=== PATIENT | female | born 1965 | race Two or more races ===

== ENCOUNTER 2018-04-26 16:28 | Inpatient (IN) | payer OTHER ==
[2018-04-26 17:06] VITALS: BMI 18.8
--- NOTE | 2018-04-26 18:20 | HP ---
CIWA Score Nausea/Vomitin-Mild Nausea/No Vomiting Muscle Tremors: 2 Anxiety: 2 Agitation: 2 Paroxysmal Sweats: 1-Minimal Palms Moist Orientation: 1-Uncertain about Date Tacttile Disturbances: 1-Very Mild Itch/Numbness Auditory Disturbances: 1-Very Mild Visual Disturbances: 1-Very Mild Sensitivity Headache: 1-Very Mild CIWA-Ar Total Score: 13 - Admission Criteria OASAS Guidelines: Admission for Medically Managed Detox: Requires at least one of the followin. CIWA greater than 12 2. Seizures within the past 24 hours 3. Delirium tremens within the past 24 hours 4. Hallucinations within the past 24 hours 5. Acute intervention needed for co occurring medical disorder 6. Acute intervention needed for co occurring psychiatric disorder 7. Severe withdrawal that cannot be handled at a lower level of care (continued vomiting, continued diarrhea, abnormal vital signs) requiring intravenous medication and/or fluids 8. Admission ROS [facility] Chief Complaint: WITHDRAWAL SYMPTOMS Allergies/Adverse Reactions: Allergies Allergy/AdvReac Type Severity Reaction Status Date / Time No Known Allergies Allergy Unverified 07/09/11 10:32 History of Present Illness: 53 Y.O. WOMAN WITH A HISTORY OF ALCOHOL, MARIJUANA AND COCAINE DEPENDENCE IS HERE SEEKING DETOX SERVICES. SHE REPORTS SHE LAST COMPLETED DETOX 5 YEARS AGO. 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 PT. REPORTS THE TAKES THE MEDICATION FOR BACK AND B/L KNEE PAIN AND DENIES ANY HISTORY OF ABUSE. UA IS NEGATIVE FOR ALL OPIATES. PT. INFORMED THAT SHE WILL NOT BE RECEIVING OPIATES DURING HER ADMISSION HERE AT [facility] AND PAIN WOULD BE MANAGED WITH NON-OPIATES; PT. VERBALIZED UNDERSTANDING. PT. WAS EVALUATED AT [facility] ON 04/25/18 AND WAS DIAGNOSED WITH A UTI; DISCHARGE INSTRUCTIONS STATE THE PT. IS TO COMPLETE A 7 DAY COURSE OF 750MG LEVAQUIN WHICH SHE WILL START DURING HAD ADMISSION HERE. Others' Prescriptions Patient Name: Angela Cuellar Date: 1965 Address: [address] [place] [address] Sex: Female Rx Written Rx Dispensed Drug Quantity Days Supply Prescriber Name 04/15/2018 04/15/2018 oxycodone hcl 30 mg tablet 120 30 Jackelyn Gil MD 03/21/2018 03/21/2018 oxycodone hcl 30 mg tablet 120 30 Louise Somsri MD 02/16/2018 02/16/2018 oxycodone hcl 30 mg tablet 120 30 RatanaprasatpornJackelyn MD 01/17/2018 01/17/2018 oxycodone hcl 30 mg tablet 120 30 RatanaprasatpornJackelyn MD 12/20/2017 12/21/2017 oxycodone hcl 30 mg tablet 120 30 RatanaprasatpornJackelyn MD 11/17/2017 11/17/2017 oxycodone hcl 30 mg tablet 120 30 RatanaprasatpornJackelyn MD 11/04/2017 11/05/2017 oxycodone-acetaminophen 5-325 mg tab 20 5 Jean Mendez () 10/18/2017 10/18/2017 oxycodone hcl 30 mg tablet 120 30 RatanaprasatpornJackelyn MD 09/17/2017 09/17/2017 oxycodone hcl 30 mg tablet 120 30 RatanaprasatpornJackelyn MD Patient Name: Angela Cuellar Date: 1965 Address: [address] [place] [address] Sex: Female Rx Written Rx Dispensed Drug Quantity Days Supply Prescriber Name 08/20/2017 08/20/2017 oxycodone hcl 30 mg tablet 120 30 RatanaprasatpornJackelyn MD 07/20/2017 07/20/2017 oxycodone hcl 30 mg tablet 120 30 RatanaprasatpornJackelyn MD 06/22/2017 06/22/2017 oxycodone hcl 30 mg tablet 120 30 RatanaprasatpornJackelyn MD 05/22/2017 05/22/2017 oxycodone hcl 30 mg tablet 120 30 RatanaprasatpornJackelyn MD * - Drugs marked with an asterisk are compound drugs. If the compound drug is made up of more than one controlled substance, then each controlled substance will be a separate row in the Exam Limitations: No Limitations - Ebola screening Have you traveled outside of the country in the last 21 days: Yes (Y) Have you had contact with anyone from an Ebola affected area: Yes Have you been sick,other than usual withdrawal symptoms: No Do you have a fever: Yes - Review of Systems Constitutional: Diaphoresis, Loss of Appetite, Night Sweats, Unexplained wgt Loss EENT: reports: Tearing Respiratory: reports: Cough, Wheezing Cardiac: reports: Chest Pain GI: reports: Diarrhea, Nausea : reports: Dysuria Musculoskeletal: reports: Back Pain, Joint Pain Integumentary: reports: Bruising Neuro: reports: Headache, Tremors Endocrine: reports: No Symptoms Reported Hematology: reports: Anemia Psychiatric: reports: Orientated x3, Depressed, other (Bipolar) Other Systems: Reviewed and Negative Patient History - Patient Medical History Hx Anemia: Yes (SKY ) Hx Asthma: Yes Hx Chronic Obstructive Pulmonary Disease (COPD): No Hx Cancer: No Hx Cardiac Disorders: No Hx Congestive Heart Failure: No Hx Hypertension: Yes (NOT ON MEDS ) Hx Hypercholesterolemia: No Hx Pacemaker: No HX Cerebrovascular Accident: Yes (10 YEARS AGO-DRUG INDUCED) Hx Seizures: Yes (Pt has a hx of etoh related seizures. Last seizure was 5 years ago) Hx Dementia: No Hx Diabetes: No Hx Gastrointestinal Disorders: No Hx Liver Disease: No Hx Genitourinary Disorders: No Hx Sexually Transmitted Disorders: No Hx Renal Disease (ESRD): No Hx Thyroid Disease: No Hx Human Immunodeficiency Virus (HIV): No Hx Hepatitis C: No Hx Depression: Yes (Manic depression) Hx Suicide Attempt: No Hx Bipolar Disorder: Yes Hx Schizophrenia: No - Patient Surgical History Past Surgical History: Yes Hx Neurologic Surgery: No Hx Cataract Extraction: No Hx Cardiac Surgery: No Hx Lung Surgery: No Hx Breast Surgery: No Hx Breast Biopsy: No Hx Appendectomy: Yes (at age 14 yrs) Hx Section: Yes (x3 1977 1982 1984) Hx Orthopedic Surgery: Yes (b/l knee replacement sx 09/2017 and 10/2017) Hx Hysterectomy: No Other Surgical History: Tonsillectomy at age 4 yrs Anesthesia Reaction: No - PPD History Previous Implant?: Yes Documented Results: Negative w/o proof Implanted On Prior R Admission?: Yes Date: 07/10/11 PPD to be Administered?: Yes - Reproductive History Patient is a Female of Child Bearing Age (11 -55 yrs old): Yes Last Menstrual Period: 05/11/11 (Reports last period was 10 yrs ago) Patient : No - Smoking Cessation Smoking history: Current every day smoker Have you smoked in the past 12 months: Yes Aproximately how many cigarettes per day: 2 Hx Chewing Tobacco Use: Yes Initiated information on smoking cessation: Yes 'Breaking Loose' booklet given: 04/26/18 - Substance & Tx. History Hx Alcohol Use: Yes Hx Substance Use: Yes Substance Use Type: Alcohol Hx Substance Use Treatment: Yes (Detox: 2012) - Substances Abused Alcohol Route: Oral Frequency: Daily Amount used: 1 pint of liquor Age of first use: 10 Date of Last Use: 04/25/18 Cocaine Route: Inhalation Frequency: 1-2 times per week Amount used: 1 gram Age of first use: 22 Date of Last Use: 04/21/18 Marijuana/Hashish Route: Smoking Frequency: Daily Amount used: 1 oz Age of first use: 10 Date of Last Use: 04/25/18 Family Disease History - Family Disease History Family Disease History: Diabetes: Mother (ETOH DEPENDENCE ()), Heart Disease: Father, Other: Mother Admission Physical Exam S - Vital Signs Vital Signs: Vital Signs - 24 hr 04/26/18 17:04 Temperature 97.0 F L Pulse Rate 69 Respiratory 18 Rate Blood Pressure 115/77 - Physical General Appearance: Yes: Thin, Tremorous, Anxious HEENTM: Yes: Hearing grossly Normal, Normocephalic, Normal Voice Respiratory: Yes: Chest Non-Tender, Normal Breath Sounds, No Respiratory Distress, No Accessory Muscle Use Neck: Yes: No masses,lesions,Nodules, Trachea in good position Breast: Yes: Breast Exam Deferred Cardiology: Yes: Regular Rhythm, Regular Rate Abdominal: Yes: Normal Bowel Sounds, Non Tender Genitourinary: Yes: Dysuria Back: Yes: Normal Inspection Musculoskeletal: Yes: Back pain, Joint Stiffness Extremities: Yes: Normal Inspection, Non-Tender Neurological: Yes: Alert, Normal Mood/Affect, Normal Response Integumentary: Yes: Normal Color, Dry, Warm Lymphatic: Yes: Within Normal Limits - Diagnostic (1) Alcohol dependence with uncomplicated withdrawal Current Visit: Yes Status: Chronic (2) Nicotine dependence Current Visit: Yes Status: Chronic (3) Asthma Current Visit: Yes Status: Chronic (4) UTI (urinary tract infection) Current Visit: Yes Status: Acute (5) Back pain Current Visit: Yes Status: Chronic (6) Knee pain Current Visit: Yes Status: Chronic (7) Underweight Current Visit: Yes Status: Acute (8) Loss of appetite Current Visit: Yes Status: Acute (9) Cocaine dependence Current Visit: Yes Status: Chronic (10) Marijuana dependence Current Visit: Yes Status: Chronic (11) CVA (cerebral vascular accident) Current Visit: No Status: Acute (12) History of seizure Current Visit: No Status: Acute (13) SKY (iron deficiency anemia) Current Visit: Yes Status: Acute Cleared for Admission [facility] - Detox or Rehab [facility] Level of Care: Medically Managed Detox Regimen/Protocol: Librium [facility] Breath Alcohol Content Breath Alcohol Content: 0 Urine Drug Screen - Results Drug Screen Negative: No Urine Drug Screen Results: THC-Marijuana, AZEB-Cocaine
[2018-04-26] MEDS ORDERED: MAGNESIUM HYDROX 2400MG/30ML ORAL SUSPENSION 30 ML CUP PO PRN (19:02)
[2018-04-26] MEDS ORDERED: P-EPHED 60MG/TRIPROLIDI 2.5MG TABLET PO PRN (19:02)
[2018-04-26] MEDS ORDERED: LOPERAMIDE HCL 2 MG CAPSULE PO PRN (19:02)
[2018-04-26] MEDS ORDERED: MENTHOL/PHENOL 1 EACH UD MM PRN (19:02)
[2018-04-26] MEDS ORDERED: hydrOXYzine PAMOATE 50 MG CAPSULE (FP) PO PRN (19:02)
[2018-04-26] MEDS ORDERED: MAGNESIUM CITRATE 300 ML BOTTLE PO PRN (19:02)
[2018-04-26] MEDS ORDERED: MAG HYDROX/AL HYDROX/SIMETH 30 ML UNIT-DOSE CUP PO PRN (19:02)
[2018-04-26] MEDS: chlordiazePOXIDE HCL 25 MG CAPSULE PO SCH (22:32)
[2018-04-26] MEDS: MELATONIN 5 MG TABLETS PO PRN (22:33)
[2018-04-26] MEDS: THIAMINE HCL 100 MG TABLET (FP) PO SCH (22:33)
[2018-04-26] MEDS: ALBUTEROL SO4 8 GM HFA INHALER IH SCH ×2 (22:36→23:10)
[2018-04-27] MEDS: ALBUTEROL SO4 8 GM HFA INHALER IH SCH ×3 (04:10→11:14)
[2018-04-27] MEDS: chlordiazePOXIDE HCL 25 MG CAPSULE PO SCH ×4 (06:10→22:18)
[2018-04-27] MEDS ORDERED: ALBUTEROL SO4 0.083% IH SOL 2.5 MG/3 ML VIAL.NEB. NEB PRN (09:35)
--- NOTE | 2018-04-27 09:37 | PN ---
[facility] CIWA - CIWA Score Nausea/Vomitin-No Nausea/No Vomiting Muscle Tremors: 4-Moderate,w/Arms Extend Anxiety: 2 Agitation: 3 Paroxysmal Sweats: 1-Minimal Palms Moist Orientation: 1-Uncertain about Date Tacttile Disturbances: 0-None Auditory Disturbances: 0-None Visual Disturbances: 0-None Headache: 1-Very Mild CIWA-Ar Total Score: 12 S Progress Note (SOAP) Subjective: tremor sweat asthma "acting out" nebulizer prn anxiety restlessness patient is taking lavequin for uti from 04/25/18 at [facility] Objective: 04/27/18 13:44 Vital Signs Temperature 98.2 F 04/27/18 09:11 Pulse Rate 66 04/27/18 09:11 Respiratory Rate 18 04/27/18 09:11 Blood Pressure 127/67 04/27/18 09:11 O2 Sat by Pulse Oximetry (%) Laboratory Last Values WBC 6.5 K/mm3 (4.0-10.0) 04/27/18 08:00 RBC 4.56 M/mm3 (3.60-5.2) 04/27/18 08:00 Hgb 13.2 GM/dL (10.7-15.3) 04/27/18 08:00 Hct 41.6 % (32.4-45.2) 04/27/18 08:00 MCV 91.3 fl (80-96) 04/27/18 08:00 MCH 28.9 pg (25.7-33.7) 04/27/18 08:00 MCHC 31.7 g/dl (32.0-36.0) L 04/27/18 08:00 RDW 13.8 % (11.6-15.6) 04/27/18 08:00 Plt Count 195 K/MM3 (134-434) D 04/27/18 08:00 MPV 9.2 fl (7.5-11.1) 04/27/18 08:00 Sodium 145 mmol/L (136-145) 04/27/18 08:00 Potassium 4.1 mmol/L (3.5-5.1) 04/27/18 08:00 Chloride 112 mmol/L (98-107) H 04/27/18 08:00 Carbon Dioxide 28 mmol/L (21-32) 04/27/18 08:00 Anion Gap 5 MMOL/L (8-16) L 04/27/18 08:00 BUN 9 mg/dL (7-18) 04/27/18 08:00 Creatinine 0.8 mg/dL (0.55-1.3) 04/27/18 08:00 Creat Clearance w eGFR > 60 (>60) 04/27/18 08:00 Random Glucose 86 mg/dL (74-106) 04/27/18 08:00 Calcium 8.7 mg/dL (8.5-10.1) 04/27/18 08:00 Total Bilirubin 0.3 mg/dL (0.2-1) 04/27/18 08:00 AST 28 U/L (15-37) 04/27/18 08:00 ALT 37 U/L (13-61) 04/27/18 08:00 Alkaline Phosphatase 105 U/L (45-117) 04/27/18 08:00 Total Protein 6.7 g/dl (6.4-8.2) 04/27/18 08:00 Albumin 3.5 g/dl (3.4-5.0) 04/27/18 08:00 RPR Titer Nonreactive (NONREACTIVE) 04/27/18 08:00 lab noted Assessment: 04/27/18 13:44 withdrawal sx uti Plan: continue detox
[2018-04-27] MEDS ORDERED: levoFLOXacin 750 MG TABLET PO SCH (10:00)
[2018-04-27 10:02] LABS: HEMATOCRIT 41.6 % (32.4-45.2); HEMOGLOBIN 13.2 GM/dL (10.7-15.3); MCH 28.9 pg (25.7-33.7); MCHC 31.7 g/dl (32.0-36.0); MEAN CELL VOLUME 91.3 fl (80-96); MEAN PLT VOLUME 9.2 fl (7.5-11.1); PLATELET COUNT 195 K/MM3 (134-434); RBC 4.56 M/mm3 (3.60-5.2); RDW 13.8 % (11.6-15.6); WHITE BLOOD COUNT 6.5 K/mm3 (4.0-10.0)
[2018-04-27] MEDS: PRENATAL VITAMINS W/ FOLIC ACID TABLET (FP) PO SCH (11:12)
[2018-04-27 11:19] LABS: ALBUMIN 3.5 g/dl (3.4-5.0); ALK PHOS 105 U/L (45-117); ANION GAP 5 MMOL/L (8-16); BILIRUBIN,TOTAL 0.3 mg/dL (0.2-1); BLOOD UREA NITROGEN 9 mg/dL (7-18); CALCIUM 8.7 mg/dL (8.5-10.1); CHLORIDE 112 mmol/L (98-107); CO2 28 mmol/L (21-32); CREATININE 0.8 mg/dL (0.55-1.3); GLUCOSE,RANDOM 86 mg/dL (74-106); POTASSIUM 4.1 mmol/L (3.5-5.1); SGOT/AST 28 U/L (15-37); SGPT/ALT 37 U/L (13-61); SODIUM 145 mmol/L (136-145); TOT PROT 6.7 g/dl (6.4-8.2)
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
--- NOTE | 2018-04-27 18:57 | EKG ---
Test Reason : Blood Pressure : / mmHG Vent. Rate : 080 BPM Atrial Rate : 080 BPM P-R Int : 170 ms QRS Dur : 084 ms QT Int : 384 ms P-R-T Axes : 080 083 068 degrees QTc Int : 442 ms NORMAL SINUS RHYTHM NORMAL ECG NO PREVIOUS ECGS AVAILABLE Confirmed by YADIEL GAYLE, BRYANNA ([id number]) on 04/27/2018 6:57:22 PM Referred By: Confirmed By:BRYANNA COTTO MD
[2018-04-27] MEDS: QUEtiapine FUMARATE 50 MG TABLET PO SCH (22:18)
[2018-04-27] MEDS: THIAMINE HCL 100 MG TABLET (FP) PO SCH (22:18)
[2018-04-28] MEDS: chlordiazePOXIDE HCL 25 MG CAPSULE PO SCH ×3 (06:03→17:46)
[2018-04-28] MEDS: ALBUTEROL SO4 8 GM HFA INHALER IH PRN (10:37)
[2018-04-28] MEDS: PRENATAL VITAMINS W/ FOLIC ACID TABLET (FP) PO SCH (10:37)
--- NOTE | 2018-04-28 16:14 | PN ---
S CIWA - CIWA Score Nausea/Vomitin-No Nausea/No Vomiting Muscle Tremors: 3 Anxiety: 2 Agitation: 2 Paroxysmal Sweats: 1-Minimal Palms Moist Orientation: 0-Oriented Tacttile Disturbances: 0-None Auditory Disturbances: 0-None Visual Disturbances: 0-None Headache: 2-Mild CIWA-Ar Total Score: 10 S Progress Note (SOAP) Subjective: tremor sweat gi distress restlessness Objective: 04/28/18 16:13 Vital Signs Temperature 96.1 F L 04/28/18 13:28 Pulse Rate 87 04/28/18 13:28 Respiratory Rate 18 04/28/18 13:28 Blood Pressure 102/62 04/28/18 13:28 O2 Sat by Pulse Oximetry (%) Laboratory Last Values WBC 6.5 K/mm3 (4.0-10.0) 04/27/18 08:00 RBC 4.56 M/mm3 (3.60-5.2) 04/27/18 08:00 Hgb 13.2 GM/dL (10.7-15.3) 04/27/18 08:00 Hct 41.6 % (32.4-45.2) 04/27/18 08:00 MCV 91.3 fl (80-96) 04/27/18 08:00 MCH 28.9 pg (25.7-33.7) 04/27/18 08:00 MCHC 31.7 g/dl (32.0-36.0) L 04/27/18 08:00 RDW 13.8 % (11.6-15.6) 04/27/18 08:00 Plt Count 195 K/MM3 (134-434) D 04/27/18 08:00 MPV 9.2 fl (7.5-11.1) 04/27/18 08:00 Sodium 145 mmol/L (136-145) 04/27/18 08:00 Potassium 4.1 mmol/L (3.5-5.1) 04/27/18 08:00 Chloride 112 mmol/L (98-107) H 04/27/18 08:00 Carbon Dioxide 28 mmol/L (21-32) 04/27/18 08:00 Anion Gap 5 MMOL/L (8-16) L 04/27/18 08:00 BUN 9 mg/dL (7-18) 04/27/18 08:00 Creatinine 0.8 mg/dL (0.55-1.3) 04/27/18 08:00 Creat Clearance w eGFR > 60 (>60) 04/27/18 08:00 Random Glucose 86 mg/dL (74-106) 04/27/18 08:00 Calcium 8.7 mg/dL (8.5-10.1) 04/27/18 08:00 Total Bilirubin 0.3 mg/dL (0.2-1) 04/27/18 08:00 AST 28 U/L (15-37) 04/27/18 08:00 ALT 37 U/L (13-61) 04/27/18 08:00 Alkaline Phosphatase 105 U/L (45-117) 04/27/18 08:00 Total Protein 6.7 g/dl (6.4-8.2) 04/27/18 08:00 Albumin 3.5 g/dl (3.4-5.0) 04/27/18 08:00 RPR Titer Nonreactive (NONREACTIVE) 04/27/18 08:00 lab noted 04/28/18 16:13 ua pending Assessment: 04/28/18 16:13 withdrawal sx Plan: continue detox
[2018-04-28] MEDS: THIAMINE HCL 100 MG TABLET (FP) PO SCH (22:41)
[2018-04-28] MEDS: chlordiazePOXIDE 5 MG CAPSULE PO SCH (22:42)
[2018-04-28] MEDS: QUEtiapine FUMARATE 50 MG TABLET PO SCH (22:42)
[2018-04-29] MEDS: chlordiazePOXIDE 5 MG CAPSULE PO SCH ×4 (07:49→16:40)
[2018-04-29 10:22] LABS: URINE APPEARANCE CLEAR; URINE BILIRUBIN NEGATIVE (<2.0 mg/dL); URINE COLOR LTYELLOW; URINE GLUCOSE (UA) NEGATIVE (NEGATIVE); URINE KETONE NEGATIVE (NEGATIVE); URINE LEUK ESTERASE NEGATIVE (NEGATIVE); URINE NITRITE NEGATIVE (NEGATIVE); URINE PROTEIN NEGATIVE (NEGATIVE); URINE UROBILINOGEN NEGATIVE mg/dL (0.2-1.0)
[2018-04-29] MEDS: PRENATAL VITAMINS W/ FOLIC ACID TABLET (FP) PO SCH (11:05)
--- NOTE | 2018-04-29 17:41 | PN ---
[facility] Progress Note Note: PATIENT CONTINUES WITH DETOX REGIMEN. C/O "LOOSE COUGH", SWEATING AND NAUSEA. Vital Signs Temperature 98.3 F 04/29/18 09:46 Pulse Rate 69 04/29/18 09:46 Respiratory Rate 16 04/29/18 09:46 Blood Pressure 102/64 04/29/18 09:46 O2 Sat by Pulse Oximetry (%) Laboratory Tests 04/27/18 04/27/18 04/27/18 08:00 08:00 08:00 WBC 6.5 RBC 4.56 Hgb 13.2 Hct 41.6 MCV 91.3 MCH 28.9 MCHC 31.7 L RDW 13.8 Plt Count 195 D MPV 9.2 Sodium 145 Potassium 4.1 Chloride 112 H Carbon Dioxide 28 Anion Gap 5 L BUN 9 Creatinine 0.8 Creat Clearance w eGFR > 60 Random Glucose 86 Calcium 8.7 Total Bilirubin 0.3 AST 28 ALT 37 Alkaline Phosphatase 105 Total Protein 6.7 Albumin 3.5 Urine Color Urine Appearance Urine pH Ur Specific [place] Urine Protein Urine Glucose (UA) Urine Ketones Urine Blood Urine Nitrite Urine Bilirubin Urine Urobilinogen Ur Leukocyte Esterase RPR Titer Nonreactive 04/28/18 08:00 WBC RBC Hgb Hct MCV MCH MCHC RDW Plt Count MPV Sodium Potassium Chloride Carbon Dioxide Anion Gap BUN Creatinine Creat Clearance w eGFR Random Glucose Calcium Total Bilirubin AST ALT Alkaline Phosphatase Total Protein Albumin Urine Color Ltyellow Urine Appearance Clear Urine pH 7.0 Ur Specific [place] 1.013 Urine Protein Negative Urine Glucose (UA) Negative Urine Ketones Negative Urine Blood Negative Urine Nitrite Negative Urine Bilirubin Negative Urine Urobilinogen Negative Ur Leukocyte Esterase Negative RPR Titer PE: ALERT AND ORIENTED X 3 SKIN WARM AND MOIST CAR S1 S2 RESP CTA BL @ BASES, +RHONCHI CLEARS WITH COUGHING EXT FULL ROM, AMB AD RODRIGUEZ A/P WITHDRAWAL SX COUGH CONTINUE DETOX ENCOURAGE FLUIDS ROBITUSSIN FOR COUGH PATIENT ON LEVAQUIN FOR UTI WHICH CAN COVER URI THERFORE WILL NOT CHANGE OR ADD TO REGIMEN CONTINUE TO MONITOR
[2018-04-29] MEDS: chlordiazePOXIDE HCL 10 MG CAPSULE PO SCH (22:12)
[2018-04-29] MEDS: QUEtiapine FUMARATE 50 MG TABLET PO SCH (22:12)
[2018-04-29] MEDS: THIAMINE HCL 100 MG TABLET (FP) PO SCH (22:12)
[2018-04-29] MEDS: guaiFENesin/D-METHORPHAN HB 10 ML UNIT-DOSE CUPS PO PRN (22:13)
[2018-04-29] MEDS: ALBUTEROL SO4 8 GM HFA INHALER IH PRN (22:44)
[2018-04-30] MEDS: chlordiazePOXIDE HCL 10 MG CAPSULE PO SCH ×3 (06:00→17:25)
[2018-04-30] MEDS: ALBUTEROL SO4 8 GM HFA INHALER IH PRN (11:07)
[2018-04-30] MEDS: PRENATAL VITAMINS W/ FOLIC ACID TABLET (FP) PO SCH (11:07)
--- NOTE | 2018-04-30 11:39 | DS ---
[facility] Detox Discharge Summary Admission Date: 04/26/18 Discharge Date: 04/30/18 - History Additional Comments: DETOX COMPLETED. PT WAS SEEN BY HEALTHCARE RECEPTIONIST, RACHELLE CASAS AND REFERRED TODAY TO REHAB ON . Pertinent Past History: PLEASE SEE DX BELOW - Physical Exam Results Vital Signs: Vital Signs Temperature 97.1 F L 04/30/18 06:31 Pulse Rate 58 L 04/30/18 06:31 Respiratory Rate 18 04/30/18 06:31 Blood Pressure 102/60 04/30/18 06:31 O2 Sat by Pulse Oximetry (%) Pertinent Admission Physical Exam Findings: WITHDRAWAL SX Laboratory Tests 04/27/18 04/27/18 04/27/18 08:00 08:00 08:00 WBC 6.5 RBC 4.56 Hgb 13.2 Hct 41.6 MCV 91.3 MCH 28.9 MCHC 31.7 L RDW 13.8 Plt Count 195 D MPV 9.2 Sodium 145 Potassium 4.1 Chloride 112 H Carbon Dioxide 28 Anion Gap 5 L BUN 9 Creatinine 0.8 Creat Clearance w eGFR > 60 Random Glucose 86 Calcium 8.7 Total Bilirubin 0.3 AST 28 ALT 37 Alkaline Phosphatase 105 Total Protein 6.7 Albumin 3.5 Urine Color Urine Appearance Urine pH Ur Specific [place] Urine Protein Urine Glucose (UA) Urine Ketones Urine Blood Urine Nitrite Urine Bilirubin Urine Urobilinogen Ur Leukocyte Esterase RPR Titer Nonreactive 04/28/18 08:00 WBC RBC Hgb Hct MCV MCH MCHC RDW Plt Count MPV Sodium Potassium Chloride Carbon Dioxide Anion Gap BUN Creatinine Creat Clearance w eGFR Random Glucose Calcium Total Bilirubin AST ALT Alkaline Phosphatase Total Protein Albumin Urine Color Ltyellow Urine Appearance Clear Urine pH 7.0 Ur Specific [place] 1.013 Urine Protein Negative Urine Glucose (UA) Negative Urine Ketones Negative Urine Blood Negative Urine Nitrite Negative Urine Bilirubin Negative Urine Urobilinogen Negative Ur Leukocyte Esterase Negative RPR Titer - Treatment Hospital Course: Detox Protocol Followed, Detoxed Safely, Responded well, Discharged Condition Good, Rehab Referral Accepted Patient has Accepted a Rehab Referral to: [facility] - Medication Discharge Medications: Ambulatory Orders Tiotropium [place] [Spiriva] 1 inh PO DAILY 07/08/11 Albuterol Sulfate Inhaler - [Ventolin Hfa Inhaler -] 2 inh PO Q4H 04/26/18 Oxycodone HCl 30 mg PO TID 04/26/18 - Diagnosis (1) KSY (iron deficiency anemia) Current Visit: Yes Status: Resolved (2) Underweight Current Visit: Yes Status: Acute (3) Alcohol dependence with uncomplicated withdrawal Current Visit: Yes Status: Acute (4) Asthma Current Visit: Yes Status: Chronic Qualifiers: Asthma severity: unspecified severity Asthma persistence: unspecified Asthma complication type: uncomplicated Qualified Code(s): J45.909 - Unspecified asthma, uncomplicated (5) Back pain Current Visit: Yes Status: Chronic Qualifiers: Back pain location: back pain in unspecified location (6) Cocaine dependence Current Visit: Yes Status: Acute Qualifiers: Substance use status: uncomplicated Qualified Code(s): F14.20 - Cocaine dependence, uncomplicated (7) Knee pain Current Visit: Yes Status: Chronic Qualifiers: Chronicity: unspecified (8) Marijuana dependence Current Visit: Yes Status: Acute (9) Nicotine dependence Current Visit: Yes Status: Acute Qualifiers: Nicotine product type: cigarettes Substance use status: in withdrawal Qualified Code(s): F17.213 - Nicotine dependence, cigarettes, with withdrawal (10) CVA (cerebral vascular accident) Current Visit: Yes Status: Resolved Qualifiers: Laterality of affected vessel: unspecified (11) History of seizure Current Visit: Yes Status: Suspected - AMA Did Patient Leave Against Medical Advice: No
[2018-04-30] MEDS: IBUPROFEN 400 MG TABLET (FP) PO PRN (13:14)
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
[2018-04-30] MEDS: THIAMINE HCL 100 MG TABLET (FP) PO SCH (21:25)
[2018-04-30] MEDS: QUEtiapine FUMARATE 50 MG TABLET PO SCH (21:27)
[2018-04-30] MEDS ORDERED: QUEtiapine FUMARATE 50 MG TABLET PO SCH (22:00)
[2018-04-30] MEDS: guaiFENesin/D-METHORPHAN HB 10 ML UNIT-DOSE CUPS PO PRN (22:16)
[2018-05-01] MEDS ORDERED: PT OWN MED DRAWER 7, Y5N ONE ×2 (05:53→07:10)
[2018-05-01] MEDS: PRENATAL VITAMINS W/ FOLIC ACID TABLET (FP) PO SCH (09:18)
[2018-05-01] MEDS: IBUPROFEN 400 MG TABLET (FP) PO PRN (12:56)
[2018-05-01] MEDS: THIAMINE HCL 100 MG TABLET (FP) PO SCH (21:19)
[2018-05-01] MEDS: QUEtiapine FUMARATE 50 MG TABLET PO SCH (21:20)
[2018-05-02] MEDS: PRENATAL VITAMINS W/ FOLIC ACID TABLET (FP) PO SCH (09:57)
[2018-05-02] MEDS: QUEtiapine FUMARATE 50 MG TABLET PO SCH (21:13)
[2018-05-02] MEDS: THIAMINE HCL 100 MG TABLET (FP) PO SCH (21:13)
[2018-05-02] MEDS: MELATONIN 5 MG TABLETS PO PRN (21:13)
[2018-05-03] MEDS ORDERED: PT OWN MED DRAWER 7, Y5N ONE ×3 (08:42→11:13)
[2018-05-03] MEDS: PRENATAL VITAMINS W/ FOLIC ACID TABLET (FP) PO SCH (09:38)
--- NOTE | 2018-05-03 11:03 | PN ---
[facility] Progress Note Note: Pt c/o pain and sore in mouth. Denies burning or tingling. Oral exam:small painful sore on right inner mouth mucous membrane. Vital Signs 05/03/18 03:30 Respiratory 18 Rate Dx:canker sore plan:Viscous lidocaine 2% apply as directed. tylenol or motrin prn for pain.
[2018-05-03] MEDS ORDERED: LIDOCAINE VISCOUS 2% ORAL/TOP 20 ML UNIT-DOSE CUP MM ONE (11:12)
[2018-05-03] MEDS: QUEtiapine FUMARATE 50 MG TABLET PO SCH (21:08)
[2018-05-03] MEDS: THIAMINE HCL 100 MG TABLET (FP) PO SCH (21:08)
[2018-05-03] MEDS: MELATONIN 5 MG TABLETS PO PRN (21:08)
[2018-05-04] MEDS: LIDOCAINE VISCOUS 2% ORAL/TOP 20 ML UNIT-DOSE CUP MM PRN ×2 (06:53→14:51)
[2018-05-04] MEDS: PRENATAL VITAMINS W/ FOLIC ACID TABLET (FP) PO SCH (10:23)
[2018-05-04] MEDS: ACETAMINOPHEN 325 MG TABLET (FP) PO PRN (10:43)
[2018-05-04] MEDS: IBUPROFEN 600 MG TABLET (FP) PO PRN (14:52)
[2018-05-04] MEDS: MELATONIN 5 MG TABLETS PO PRN (21:37)
[2018-05-04] MEDS: THIAMINE HCL 100 MG TABLET (FP) PO SCH (21:37)
[2018-05-04] MEDS: QUEtiapine FUMARATE 50 MG TABLET PO SCH (21:37)
[2018-05-05] MEDS: IBUPROFEN 600 MG TABLET (FP) PO PRN ×2 (10:19→18:55)
[2018-05-05] MEDS: LIDOCAINE VISCOUS 2% ORAL/TOP 20 ML UNIT-DOSE CUP MM PRN (10:19)
[2018-05-05] MEDS: PRENATAL VITAMINS W/ FOLIC ACID TABLET (FP) PO SCH (10:21)
[2018-05-05] MEDS: THIAMINE HCL 100 MG TABLET (FP) PO SCH (21:29)
[2018-05-05] MEDS: MELATONIN 5 MG TABLETS PO PRN (21:29)
[2018-05-05] MEDS: QUEtiapine FUMARATE 50 MG TABLET PO SCH (21:29)
[2018-05-06] MEDS: ACETAMINOPHEN 325 MG TABLET (FP) PO PRN (06:23)
[2018-05-06] MEDS: LIDOCAINE VISCOUS 2% ORAL/TOP 20 ML UNIT-DOSE CUP MM PRN ×2 (06:23→15:37)
[2018-05-06 07:30] VITALS: BP 137/83; PULSE 58; TEMP 97.2
[2018-05-06] MEDS: PRENATAL VITAMINS W/ FOLIC ACID TABLET (FP) PO SCH (10:22)
== END 2018-05-06 20:33 | disposition left against medical advice (07) | DRG 894 ==
LOC: YASAS 16:28 → Y3N 20:29 → Y3E 04-30 11:21
PROVIDERS: ATTEND Psychiatry & Neurology Psychiatry
PROC: HZ2ZZZZ Detoxification Services for Substance Abuse Treatment (ICD-10-PCS; principal; 2018-04-26)
PROC: HZ42ZZZ Group Counseling for Substance Abuse Treatment, Cognitive-Behavioral (ICD-10-PCS; 2018-04-30)
DX: F10.230 Alcohol dependence with withdrawal, uncomplicated (principal); F14.20 Cocaine dependence, uncomplicated; Z68.1 Body mass index [BMI] 19.9 or less, adult; N39.0 Urinary tract infection, site not specified; F12.20 Cannabis dependence, uncomplicated; F17.213 Nicotine dependence, cigarettes, with withdrawal; F19.24 Other psychoactive substance dependence with psychoactive substance-induced mood disorder; F25.9 Schizoaffective disorder, unspecified; I10 Essential (primary) hypertension; D50.9 Iron deficiency anemia, unspecified; R63.0 Anorexia; R63.6 Underweight; J45.909 Unspecified asthma, uncomplicated; M54.9 Dorsalgia, unspecified; G89.29 Other chronic pain; K12.0 Recurrent oral aphthae; R05 Cough; M25.562 Pain in left knee; M25.561 Pain in right knee; Z86.73 Personal history of transient ischemic attack (TIA), and cerebral infarction without residual deficits; Z86.69 Personal history of other diseases of the nervous system and sense organs; Z96.653 Presence of artificial knee joint, bilateral
CPT/HCPCS: 36415; 80053; 81003; 85027; 86593; 87389; 93005; 93010